=== PATIENT | female | born 1960 | race Caucasian/White ===

== ENCOUNTER → 2016-04-05 | Outpatient (CLI) | payer BC ==
--- NOTE | 2016-04-05 07:53 | US ---
EXAMINATION TYPE: US duplex aorta DATE OF EXAM: 04/05/2016 7:42 AM COMPARISON: NONE CLINICAL HISTORY: 55-year-old female Z82.49 Family HX AAA. TECHNIQUE: Multiple sonographic images of the abdominal aorta were obtained. FINDINGS: EXAM MEASUREMENTS: Abdominal Aorta: Proximal: 2.2 x 1.8 cm Mid: 1.6 x 1.8 cm Distal: 1.7 x 1.7 cm Common iliac arteries: right 1.0 x 1.1 cm; left 1.0 x 1.0 cm Very minimal atherosclerotic irregularity is noted. IMPRESSION: No sonographic evidence for any significant aortic ectasia or AAA.
--- NOTE | 2016-04-06 08:50 | MM ---
Reason for exam: screening (asymptomatic). Last mammogram was performed 1 year and 1 month ago. History: Patient is postmenopausal and has history of other cancer at age 27. Family history of breast cancer in maternal cousin. Physical Findings: A clinical breast exam by your physician is recommended on an annual basis and results should be correlated with mammographic findings. MG Screening Mammo w CAD Bilateral CC and MLO view(s) were taken. Prior study comparison: February 25, 2015, bilateral MG screening mammo w CAD. February 09, 2014, bilateral MG screening mammo w CAD. The breast tissue is heterogeneously dense. This may lower the sensitivity of mammography. No significant changes when compared with prior studies. ASSESSMENT: Benign, BI-RAD 2 RECOMMENDATION: Routine screening mammogram of both breasts in 1 year.
== END | disposition home or self-care (01) ==
LOC: RADUSWWP 07:26
PROVIDERS: ATTEND Family Medicine
DX: Z12.31 Encounter for screening mammogram for malignant neoplasm of breast (principal); Z82.49 Family history of ischemic heart disease and other diseases of the circulatory system
CPT/HCPCS: 93979; G0202

== ENCOUNTER → 2017-05-07 | Outpatient (CLI) | payer BC ==
--- NOTE | 2017-05-09 12:16 | MM ---
Reason for exam: screening (asymptomatic). Last mammogram was performed 1 year and 1 month ago. History: Patient is postmenopausal and has history of other cancer at age 27. Family history of breast cancer in maternal cousin. Physical Findings: A clinical breast exam by your physician is recommended on an annual basis and results should be correlated with mammographic findings. MG Screening Mammo w CAD Bilateral CC and MLO view(s) were taken. Prior study comparison: April 05, 2016, bilateral MG screening mammo w CAD. February 25, 2015, bilateral MG screening mammo w CAD. The breast tissue is heterogeneously dense. This may lower the sensitivity of mammography. No suspicious abnormality. No significant changes when compared with prior studies. ASSESSMENT: Negative, BI-RAD 1 RECOMMENDATION: Routine screening mammogram of both breasts in 1 year.
== END | disposition home or self-care (01) ==
LOC: RADMAMWWP 10:22
PROVIDERS: ATTEND Family Medicine
DX: Z12.31 Encounter for screening mammogram for malignant neoplasm of breast (principal)
CPT/HCPCS: 77067

== ENCOUNTER → 2018-04-03 | Outpatient (CLI) | payer BC ==
--- NOTE | 2018-04-04 08:18 | XR ---
EXAMINATION TYPE: XR Hip Complete RT DATE OF EXAM: 04/03/2018 CLINICAL HISTORY: pain TECHNIQUE: AP and frogleg views of the right hip are obtained. COMPARISON: None. FINDINGS: There is no acute fracture/dislocation evident. The joint space appears within normal li mits. The overlying soft tissue appears unremarkable. IMPRESSION: 1. There is no acute fracture or dislocation. ICD 10 NO FRACTURE, INITIAL EVALUATION
== END | disposition home or self-care (01) ==
LOC: RADXRMAIN 16:48
PROVIDERS: ATTEND Family Medicine
DX: M25.551 Pain in right hip (principal)
CPT/HCPCS: 73502

== ENCOUNTER → 2018-07-08 | Outpatient (CLI) | payer BC ==
--- NOTE | 2018-07-10 09:50 | MM ---
Reason for exam: screening (asymptomatic). Last mammogram was performed 1 year and 2 months ago. History: Patient is postmenopausal and has history of other cancer at age 27. Family history of breast cancer in maternal cousin. Physical Findings: A clinical breast exam by your physician is recommended on an annual basis and results should be correlated with mammographic findings. MG 3D Screening Mammo W/Cad Bilateral CC and MLO view(s) were taken. Prior study comparison: May 07, 2017, bilateral MG screening mammo w CAD. April 05, 2016, bilateral MG screening mammo w CAD. The breast tissue is heterogeneously dense. This may lower the sensitivity of mammography. There is no discrete abnormality. No significant changes when compared with prior studies. ASSESSMENT: Negative, BI-RAD 1 RECOMMENDATION: Routine screening mammogram of both breasts in 1 year.
== END ==
LOC: RADMAMWWP 10:17
PROVIDERS: ATTEND Family Medicine
DX: Z12.31 Encounter for screening mammogram for malignant neoplasm of breast (principal)
CPT/HCPCS: 77063; 77067

== ENCOUNTER → 2019-10-17 | Outpatient (CLI) | payer BC ==
--- NOTE | 2019-10-19 08:48 | MM ---
Reason for exam: screening (asymptomatic). Last mammogram was performed 1 year and 3 months ago. History: Patient is postmenopausal and has history of other cancer at age 27. Family history of breast cancer in maternal cousin. Physical Findings: A clinical breast exam by your physician is recommended on an annual basis and results should be correlated with mammographic findings. MG 3D Screening Mammo W/Cad Bilateral CC and MLO view(s) were taken. Prior study comparison: July 08, 2018, bilateral MG 3d screening mammo w/cad. May 07, 2017, bilateral MG screening mammo w CAD. The breast tissue is heterogeneously dense. This may lower the sensitivity of mammography. No significant changes when compared with prior studies. ASSESSMENT: Negative, BI-RAD 1 RECOMMENDATION: Routine screening mammogram of both breasts in 1 year.
== END | disposition home or self-care (01) ==
LOC: RADMAMWWP 15:59
PROVIDERS: ATTEND Family Medicine
DX: Z12.31 Encounter for screening mammogram for malignant neoplasm of breast (principal)
CPT/HCPCS: 77063; 77067

== ENCOUNTER → 2020-01-25 | Outpatient (CLI) | payer BC | END | disposition home or self-care (01) | LOC: LABWHC1 13:16 | PROVIDERS: ATTEND Emergency Medicine | DX: Z20.828 Contact with and (suspected) exposure to other viral communicable diseases (principal) | CPT/HCPCS: U0003; C9803 ==

== ENCOUNTER 2020-03-29 09:07 | Emergency (ER) | payer BC ==
[2020-03-29 09:22] VITALS: BP 130/79; PULSE 100; RESP 18; TEMP 98
[2020-03-29] MEDS ORDERED: DIPH,PERTUS(ACELL)TETVAC-LF 0.5 ML VIAL IM ONE (09:39)
--- NOTE | 2020-03-29 09:50 | ED ---
Upper Extremity HPI - General Chief Complaint: Extremity Injury, Upper Stated Complaint: silver in arm Time Seen by Provider: 03/29/20 09:35 Source: patient, RN notes reviewed Mode of arrival: ambulatory Limitations: no limitations - History of Present Illness Initial Comments: This a 59-year-old female presents emergency Department chief complaint of f oreign body her left arm. Patient states she broke a piece palate off in her arm she will use. Patient that she can feel and she states she is not up-to-date on her tetanus. Patient is no active bleeding no other complaints no paresthesias no weakness. - Related Data Home Medications Medication Instructions Recorded Confirmed Meclizine [Antivert] 1 tab PO QID PRN 06/08/14 06/08/14 Previous Rx's Medication Instructions Recorded Meclizine [Antivert] 25 mg PO TID #20 tab 06/08/14 diazePAM [Valium] 5 mg PO TID PRN #15 tab 06/08/14 Amoxicillin/Potassium Clav 1 tab PO Q12HR #20 tab 03/29/20 [Augmentin 875-125 Tablet] Allergies Allergy/AdvReac Type Severity Reaction Status Date / Time No Known Allergies Allergy Verified 03/29/20 09:19 Review of Systems ROS Statement: Those systems with pertinent positive or pertinent negative responses have been documented in the HPI. ROS Other: All systems not noted in ROS Statement are negative. Past Medical History Past Medical History: Hyperlipidemia History of Any Multi-Drug Resistant Organisms: None Reported Past Surgical History: Hysterectomy Additional Past Surgical History / Comment(s): VERTIGO Past Psychological History: No Psychological Hx Reported Smoking Status: Never smoker Past Alcohol Use History: None Reported Past Drug Use History: None Reported General Exam Limitations: no limitations General appearance: alert, in no apparent distress Head exam: Present: atraumatic, normocephalic, normal inspection Eye exam: Present: normal appearance, PERRL, EOMI. Absent: scleral icterus, conjunctival injection, periorbital swelling Respiratory exam: Present: normal lung sounds bilaterally. Absent: respiratory distress, wheezes, rales, rhonchi, stridor Cardiovascular Exam: Present: regular rate, normal rhythm, normal heart sounds. Absent: systolic murmur, diastolic murmur, rubs, gallop, clicks Extremities exam: Present: other (Left forearm there is a small puncture wound noted, proximal to the wound there is a palpable foreign body arm is n eurovascularly intact full range of motion) Course Vital Signs 03/29/20 09:20 Temperature 98 F Pulse Rate 100 Respiratory 18 Rate Blood Pressure 130/79 O2 Sat by Pulse 96 Oximetry Procedures - Forgein Body Removal Soft Tissue Consent Obtained: written consent Site: upper extremity (Left forearm) Anesthetic Used: lidocaine 2%, with epi Amount (mLs): 3 Foreign Body Suspected: Wood Foreign Body Removed: partial removal Foreign Body Removal Technique: Instrumentation Patient Tolerated Procedure: well, no complications Medical Decision Making - Medical Decision Making Patient had foreign body left arm there is a partial removal I cannot identify any other foreign body patient does not feel any sensation. Patient will follow-up with orthopedics was placed on antibiotics we did discuss possibility of foreign body and infection. Return parameters were discussed patient was updated on tetanus. Disposition Clinical Impression: Foreign body in left forearm Disposition: HOME SELF-CARE Condition: Stable Instructions (If sedation given, give patient instructions): Soft Tissue Foreign Body (ED) Additional Instructions: Please follow-up for recheck and return for any worsening changes symptoms.Please return to the Emergency Department if symptoms worsen or any other concerns. Prescriptions: Amoxicillin/Potassium Clav [Augmentin 875-125 Tablet] 1 tab PO Q12HR #20 tab Is patient prescribed a controlled substance at d/c from ED?: No Referrals: Terrence Velasquez DO [Primary Care Provider] - 1-2 days Barrett Winter MD [STAFF PHYSICIAN] - 1-2 days Time of Disposition: 10:48
[2020-03-29] MEDS ORDERED: LIDOCAINE 2%-EPI 1:100,000 20 ML VIAL SQ STA (10:12)
[2020-03-29] MEDS ORDERED: BACITRACIN OINT 1 EACH PACKET TOPICAL ONE (10:53)
--- NOTE | 2020-03-29 11:03 | XR ---
EXAMINATION TYPE: XR forearm LT DATE OF EXAM: 03/29/2020 COMPARISON: None HISTORY: Sliver distal ulnar side TECHNIQUE: 2 view left forearm FINDINGS: No radiopaque foreign bodies are identified. A suspicious radiolucency is not evident. No a cute osseous abnormality is evident. IMPRESSION: 1. No acute osseous abnormality. 2. Foreign body not identified on these images.
== END 2020-03-29 10:55 | disposition home or self-care (01) ==
LOC: EC 09:07
DX: S51.842A Puncture wound with foreign body of left forearm, initial encounter (principal); Z23 Encounter for immunization; Z90.710 Acquired absence of both cervix and uterus; W45.8XXA Other foreign body or object entering through skin, initial encounter; Y93.89 Activity, other specified; Y92.69 Other specified industrial and construction area as the place of occurrence of the external cause; Y99.0 Civilian activity done for income or pay
CPT/HCPCS: 10120; 90471; 90715; 99283

== ENCOUNTER → 2020-04-08 | Outpatient (CLI) | payer BC ==
[2020-04-08 10:38] LABS: Basophils # (A) 0.1 k/uL (0-0.2); Basophils % (A) 1 %; Eosinophils # (A) 0.2 k/uL (0-0.7); Eosinophils % (A) 3 %; HCT 41.2 % (34.0-46.0); HGB 13.9 gm/dL (11.4-16.0); Lymphocytes # (A) 2.1 k/uL (1.0-4.8); Lymphocytes % (A) 29 %; MCH 30.7 pg (25.0-35.0); MCHC 33.9 g/dL (31.0-37.0); MCV 90.6 fL (80.0-100.0); Mean Platelet Volume 6.7; Monocytes # (A) 0.3 k/uL (0-1.0); Monocytes % (A) 5 %; Neutrophils # (A) 4.3 k/uL (1.3-7.7); Neutrophils % (A) 60 %; Platelet Count 229 k/uL (150-450); RBC 4.55 m/uL (3.80-5.40); RDW 13.1 % (11.5-15.5); WBC 7.1 k/uL (3.8-10.6)
[2020-04-08 11:03] LABS: Potassium 5.1 mmol/L (3.5-5.1)
== END | disposition home or self-care (01) ==
LOC: LABPAT 09:20
PROVIDERS: ATTEND Orthopaedic Surgery
DX: S50.852A Superficial foreign body of left forearm, initial encounter (principal)
CPT/HCPCS: 36415; 80051; 85025

== ENCOUNTER 2020-04-17 13:47 | Day surgery (SDC) | payer BC, OTHER ==
[2020-04-16 08:37] VITALS: BMI 24.7
--- NOTE | 2020-04-16 16:58 | HP ---
HISTORY AND PHYSICAL DATE OF SURGERY: 04/17/2020 Martha Chen is a 59-year-old patient seen with a foreign body in the left forearm. I recommended extraction/excision of the foreign body. She was agreeable. Consent was obtained. PAST MEDICAL HISTORY: Noncontributory. PAST SURGICAL HISTORY: Noncontributory. DAILY MEDICATIONS: None. ALLERGIES: NONE KNOWN. SOCIAL HISTORY: She denies current tobacco use. PHYSICAL EVALUATION OF THE LEFT FOREARM: There is a palpable foreign body in the ulnar aspect of the distal forearm. There is a previous well-healed puncture wound with evidence that it is well healed. Distal neurovascular exam is intact. RADIOGRAPHS: Radiographs of the left forearm fail to reveal any osseous abnormality. IMPRESSION: Foreign body, left forearm. PLAN: Excision foreign body, left forearm. MMODL / IJN: [id number] /
[~2020-04-17 13:47] MED LIST: DEXAMETHASONE SOD PHOSPHATE 4 MG/ML 1 ML VIAL IV ONE; HYDROmorphone 0.5 MG/0.5 ML SYRINGE IVP PRN; LACTATED RINGERS 1,000 ML IV SCH; ONDANSETRON 4 MG/2 ML VIAL IVP ONE
[2020-04-17] MEDS ORDERED: LIDOCAINE 1% (10MG/ML) FOR IV START INTRADERMA ONE (15:14)
[2020-04-17] MEDS ORDERED: BUPIVACAINE (PF) 0.25% 30 ML VIAL SQ ONE (16:36)
[2020-04-17] MEDS ORDERED: fentaNYL (PF) 50 MCG/ML 2 ML AMP ONE (16:39)
[2020-04-17] MEDS ORDERED: LIDOCAINE 1% INJ 10MG/ML (20 ML MDV) ONE (16:39)
[2020-04-17] MEDS ORDERED: PROPOFOL 10 MG/ML 20 ML VIAL IV ONE (16:39)
[2020-04-17] MEDS ORDERED: MIDAZOLAM 2 MG/2 ML VIAL ONE (16:39)
[2020-04-17 17:25] VITALS: TEMP 98.7
--- NOTE | 2020-04-17 17:28 | P.OP ---
Date of Procedure: 04/17/20 Preoperative Diagnosis: Foreign body left forearm Postoperative Diagnosis: 3 cm x 2-3 mm foreign body left forearm Procedure(s) Performed: Excision foreign body left forearm Anesthesia: MEIR, local Surgeon: Michael Qiu Estimated Blood Loss (ml): 1 Pathology: none sent Condition: stable Disposition: PACU Indications for Procedure: 59-year-old patient seen with a symptomatic foreign body of the left forearm. I discussed surgical excision, she was agreeable. Consent was obtained. Operative Findings: See description of procedure Description of Procedure: The patient was taken to the operative suite. Patient underwent a general anesthetic by the department of anesthesia. She received preoperative IV antibiotics. Well-padded tourniquet placed proximal left upper extremity. Left upper extremity prepped and draped in the normal sterile orthopedic fashion. I palpated the foreign body. I made a 1 cm incision in the proximal area of the form body. I was able to extract performed by without difficulty. It appeared be a wood sliver measuring to 3 mm in diameter and 3 cm in length. I now palpated the area and did not feel any additional foreign bodies. I explored the incision and sewn no other form body. The incision was repaired with nylon suture. I injected 5 mL half percent plain Marcaine for postoperative pain management. Sterile dressings were applied. Tourniquet was released. Patient was awakened and then transferred to a bed and recovery stable condition.
[2020-04-17] MEDS ORDERED: HYDROmorphone 0.5 MG/0.5 ML SYRINGE IVP ONE (17:35)
[2020-04-17 18:15] VITALS: RESP 16
[2020-04-17 18:46] VITALS: BP 125/81; PULSE 69
== END 2020-04-17 18:56 | disposition home or self-care (01) ==
LOC: OR 13:47
PROVIDERS: ATTEND Orthopaedic Surgery
DX: S50.852A Superficial foreign body of left forearm, initial encounter (principal); X58.XXXA Exposure to other specified factors, initial encounter; E78.5 Hyperlipidemia, unspecified; Z79.899 Other long term (current) drug therapy; Z90.710 Acquired absence of both cervix and uterus; Z85.41 Personal history of malignant neoplasm of cervix uteri
CPT/HCPCS: 10120; J2250; J1100; J2405; J0690; J2001; J3010; J2704; J1170

== ENCOUNTER → 2020-11-19 | Outpatient (CLI) | payer BC ==
--- NOTE | 2020-11-19 11:32 | BD ---
EXAMINATION TYPE: Axial Bone Density DATE OF EXAM: 11/19/2020 COMPARISON: NONE CLINICAL HISTORY: Height: 5 FT 1 IN Weight: 135 FRAX RISK QUESTIONS: Alcohol (3 or more units per day): NO Family History (Parent hip fracture): YES Glucocorticoids (More than 3mos): NO (Ex: prednisone, prednisolone, methylprednisolone, dexamethasone, and hydrocortisone). History of Fracture in Adulthood: NO Secondary Osteoporosis: 1. Type 1 Diabetes: NO 2. Hyperthyroidism: NO 3. Menopause before 45: NO 4. Malnutrition: NO 5. Chronic liver disease: NO Rheumatoid Arthritis: NO Current Tobacco Use: NO RISK FACTORS HISTORY OF: Surgery to Spine/Hip(right/left)/Wrist (right/left): NO Family History of Osteoporosis: UNSURE Active: YES Diet low in dairy products/other sources of calcium: NO Postmenopausal woman: PART HYST AGE 27 SYMPTOMS AROUND AGE 49 Take estrogen and/or progesterone medications: NONE Lost more than 2 inches in height since high school: NO MEDICATIONS: Additional Medications: CRESTOR , ASPIRIN Additional History: EXAM MEASUREMENTS: Bone mineral densitometry was performed using the [employer] System. Bone mineral density as measured about the Lumbar spine is: ----- L1-L4(G/cm2): 1.020 T Score Values are as follows: ----- L2: -2.3 ----- L3: -0.6 ----- L4: -1.3 ----- L1-L4: -1.3 BASELINE Bone mineral density about the R hip (g/cm2): 0.659 Bone mineral density about the L hip (g/cm2): 0.669 T Score values are as follows: -----R Neck: -2.7 -----L Neck: -2.7 -----R Total: -1.3 -----L Total: -1.4 BASELINE IMPRESSION: Osteoporosis (T Score less than -2.5). There is increased fracture risk and therapy is usually indicated based on age. Re-Screen 1-2 years. NOTE: T-SCORE=SD OF THE YOUNG ADULT MEAN.
--- NOTE | 2020-11-19 14:17 | MM ---
Reason for exam: screening (asymptomatic). Last mammogram was performed 1 year and 1 month ago. History: Patient is postmenopausal and has history of other cancer at age 27. Family history of breast cancer in maternal cousin. Physical Findings: A clinical breast exam by your physician is recommended on an annual basis and results should be correlated with mammographic findings. MG Screening Mammo w CAD Bilateral CC and MLO view(s) were taken. Prior study comparison: October 17, 2019, bilateral MG 3d screening mammo w/cad. July 08, 2018, bilateral MG 3d screening mammo w/cad. May 07, 2017, bilateral MG screening mammo w CAD. The breast tissue is heterogeneously dense. This may lower the sensitivity of mammography. There is no discrete abnormality. ASSESSMENT: Negative, BI-RAD 1 RECOMMENDATION: Routine screening mammogram of both breasts in 1 year.
== END | disposition home or self-care (01) ==
LOC: RADBDWWP 09:13
PROVIDERS: ATTEND Family Medicine
DX: Z12.31 Encounter for screening mammogram for malignant neoplasm of breast (principal); Z78.0 Asymptomatic menopausal state; Z80.3 Family history of malignant neoplasm of breast; M81.0 Age-related osteoporosis without current pathological fracture
CPT/HCPCS: 77067; 77080

== ENCOUNTER → 2021-08-28 | Outpatient (CLI) | payer BC ==
--- NOTE | 2021-08-28 12:02 | US ---
EXAMINATION TYPE: US venous doppler duplex LE LT DATE OF EXAM: 08/28/2021 11:44 AM COMPARISON: NONE CLINICAL HISTORY: [id number] PAIN IN LEFT KNEE. Pain in left knee x 1 week after knee surgery SIDE PERFORMED: Left TECHNIQUE: The lower extremity deep venous system is examined utilizing real time linear array sonog ellis with graded compression, doppler sonography and color-flow sonography. VESSELS IMAGED: Common Femoral Vein Deep Femoral Vein Greater Saphenous Vein * Femoral Vein Popliteal Vein Small Saphenous Vein * Proximal Calf Veins (* superficial vessels) Left Leg: Negative for DVT IMPRESSION: No evidence for DVT at this time.
== END | disposition home or self-care (01) ==
LOC: LABWHC1 11:09
PROVIDERS: ATTEND Orthopaedic Surgery
DX: M25.561 Pain in right knee (principal)

== ENCOUNTER → 2022-01-13 | Outpatient (CLI) | payer BC ==
--- NOTE | 2022-01-14 08:50 | MM ---
Reason for Exam: Screening (asymptomatic). Last mammogram was performed 1 year(s) and 2 month(s) ago. Patient History: Menarche at age 12. First Full-Term at age 16. Hysterectomy at age 27. Postmenopausal. Maternal cousin had breast cancer under age 50. Maternal cousin had breast cancer, age 40. Risk Values: Ondina 5 year model risk: 1.1%. NCI Lifetime model risk: 5.0%. Prior Study Comparison: 07/08/2018 Bilateral Screening Mammogram, [facility]. 10/17/2019 Bilateral Screening Mammogram, [facility]. 11/19/2020 Bilateral Screening Mammogram, [facility]. Tissue Density: The breast tissue is heterogeneously dense. This may lower the sensitivity of mammography. Findings: Analyzed By CAD. There is no suspicious group of microcalcifications or new suspicious mass in either breast. No significant change from prior exams. Overall Assessment: Negative, BI-RAD 1 Management: Screening Mammogram of both breasts in 1 year. A clinical breast exam by your physician is recommended on an annual basis and results should be correlated with mammographic findings. Electronically signed and approved by: Alvaro Mcintosh D.O.
== END | disposition home or self-care (01) ==
LOC: RADMAMWWP 07:35
PROVIDERS: ATTEND Family Medicine
DX: Z12.31 Encounter for screening mammogram for malignant neoplasm of breast (principal); Z78.0 Asymptomatic menopausal state; Z80.3 Family history of malignant neoplasm of breast
CPT/HCPCS: 77063; 77067

== ENCOUNTER → 2022-12-16 | Outpatient (CLI) | payer BC ==
[2022-12-17 00:41] LABS: Anion Gap 11.3 mmol/L (4.00-12.00); Carbon Dioxide 25.7 mmol/L (21.6-31.8); Potassium 4.7 mmol/L (3.5-5.5)
== END | disposition home or self-care (01) ==
LOC: LABWHC1 12:11
PROVIDERS: ATTEND Family Medicine
DX: E87.5 Hyperkalemia (principal)
CPT/HCPCS: 36415; 80051

== ENCOUNTER → 2023-01-14 | Outpatient (CLI) | payer BC ==
--- NOTE | 2023-01-14 08:12 | BD ---
EXAMINATION TYPE: Axial Bone Density DATE OF EXAM: 01/14/2023 CLINICAL HISTORY: 62 years old Female. ICD-10 CODE: M81.0 OSTEOPOROSIS Height: Weight: FRAX RISK QUESTIONS: Family History (Parent hip fracture): yes RISK FACTORS HISTORY OF: Family History of Osteoporosis: yes Postmenopausal woman: 49 yrs old Lost more than 2 inches in height since high school: yes Hyperparathyroidism: no Adrenal Insufficiency: no MEDICATIONS: Osteoporosis Medications: fosamax, for about 2 yrs Additional Medications: aspirin, statin for cholesterol, fosamax, vid d, calcium, hx of cervical ca, 1988, Additional History: cholesterol, osteoporosis, hx of cancer, EXAM MEASUREMENTS: Bone mineral densitometry was performed using the [employer] System. Bone mineral density as measured about the Lumbar spine is: ----- L1-L4(G/cm2): 1.069 T Score Values are as follows: ----- L1: -1.5 ----- L2: -1.1 ----- L3: -0.4 ----- L4: -1.0 ----- L1-L4: -0.9 Z Score Values are as follows: ----- L1: 0.1 ----- L2: 0.5 ----- L3: 1.2 ----- L4: 0.7 ----- L1-L4: 0.7 Bone mineral density has: Increased 4.8% since 11.19.2020 Bone mineral density about the R hip (g/cm2): 0.887 Bone mineral density about the L hip (g/cm2): 0.893 T Score values are as follows: -----R Neck: -2.6 -----L Neck: -2.3 -----R Total: -1.0 -----L Total: -0.9 Z Score values are as follows: -----R Neck: -1.1 -----L Neck: -0.8 -----R Total: 0.3 -----L Total: 0.3 Bone mineral density has: Increased 5.8% since study of: 11.19.2020 FRAX%s: The graph provided illustrates a 24.1% chance for a major osteoporotic fx and a 3.1% chance f or the hips probability for fx in 10 years time. IMPRESSION: Osteopenia (T Score between -2.5 and -1). There is slightly increased risk of fracture and the patient may be considered for treatment. Re-Screen 2-5 years. NOTE: T-SCORE=SD OF THE YOUNG ADULT MEAN.
--- NOTE | 2023-01-14 08:31 | MM ---
Reason for Exam: Screening (asymptomatic). Last screening mammogram was performed 12 month(s) ago. Patient History: Menarche at age 12. First Full-Term at age 16. Hysterectomy at age 27. Postmenopausal. Maternal cousin had breast cancer under age 50. Maternal cousin had breast cancer, age 40. Risk Values: Ondina 5 year model risk: 1.1%. NCI Lifetime model risk: 4.9%. Prior Study Comparison: 10/17/2019 Bilateral Screening Mammogram, [facility]. 11/19/2020 Bilateral Screening Mammogram, [facility]. 01/13/2022 Bilateral MG 3D screening mammo w/cad, [facility]. Tissue Density: The breast tissue is heterogeneously dense. This may lower the sensitivity of mammography. Findings: Analyzed By CAD. There is no suspicious group of microcalcifications or new suspicious mass in either breast. Overall Assessment: Negative, BI-RAD 1 Management: Screening Mammogram of both breasts in 1 year. A clinical breast exam by your physician is recommended on an annual basis and results should be correlated with mammographic findings. Note on Ondina scores and lifetime risk: 1. A Ondina score greater than 3% is considered moderate risk. If this is the case, consider specialist referral to assess eligibility for a risk reducing agent. If overall lifetime risk for the development of breast cancer is 20% or higher, the patient may qualify for future screening with alternating mammogram and breast MRI. Electronically signed and approved by: Alvaro Mcintosh D.O.
== END | disposition home or self-care (01) ==
LOC: RADMAMWWP 06:52
PROVIDERS: ATTEND Family Medicine
DX: Z12.31 Encounter for screening mammogram for malignant neoplasm of breast (principal); M81.0 Age-related osteoporosis without current pathological fracture; M85.89 Other specified disorders of bone density and structure, multiple sites; R07.9 Chest pain, unspecified; R06.02 Shortness of breath; Z80.3 Family history of malignant neoplasm of breast; Z78.0 Asymptomatic menopausal state; Z82.49 Family history of ischemic heart disease and other diseases of the circulatory system
CPT/HCPCS: 77063; 77067; 77080

== ENCOUNTER → 2023-12-23 | Outpatient (CLI) | payer BC ==
--- NOTE | 2023-12-23 23:41 | MR ---
EXAMINATION TYPE: MR iac wo/w con DATE OF EXAM: 12/23/2023 COMPARISON: 06/28/2014r HISTORY: off balance, light headed, vertigo, headaches. CONTRAST: Performed utilizing 6.5 mL intravenous Gadavist gadolinium contrast. TECHNIQUE: Multiplanar, multiecho imaging on a 3.0 Mariam magnet is performed through the brain. Atte ntion is paid to the internal auditory canals with thin section imaging. Postcontrast imaging is per formed through the internal auditory canals. FINDINGS:Craniovertebral junction is normal. The pituitary is normal. Optic chiasm as visualized ap pears normal. Normal vascular flow voids are within the visualized intracranial cerebral vasculature. Diffusion-weighted imaging is performed. No suspicious hyperintensity is present to suggest an acute intracranial infarct or acute ischemic area. Signal within the brain has a couple of deep white matter areas of hyperintensity which are non-speci fic but could be related to microvascular ischemic changes.. Thin section imaging is performed through the internal auditory canals and cerebellar pontine angles. No cerebellar pontine angle masses are evident. The internal auditory canals appear normal without expansion or erosion. Postcontrast imaging was performed. No suspicious enhancement is evident within the internal audito ry canals or the included portions of the brain. IMPRESSION: 1. No suspicious changes within the internal auditory canals or cerebellar pontine angles to account for patient's symptoms. 2. Scattered deep white matter changes which are nonspecific but can be related to microvascular isch emic change. [facility], Workstation: [facility], 12/23/2023 11:39 PM
== END | disposition home or self-care (01) ==
LOC: RADMRIMAIN 20:45
PROVIDERS: ATTEND Family Medicine
DX: R42 Dizziness and giddiness
CPT/HCPCS: 70553

== ENCOUNTER → 2024-01-23 | Outpatient (CLI) | payer BC ==
--- NOTE | 2024-01-24 13:10 | MM ---
Reason for Exam: Screening (asymptomatic). Last screening mammogram was performed 12 month(s) ago. Patient History: Menarche at age 12. First Full-Term at age 16. Hysterectomy at age 27. Postmenopausal. Maternal cousin had breast cancer under age 50. Maternal cousin had breast cancer, age 40. Risk Values: Ondina 5 year model risk: 1.2%. NCI Lifetime model risk: 4.7%. Prior Study Comparison: 11/19/2020 Bilateral Screening Mammogram, [facility]. 01/13/2022 Bilateral MG 3D screening mammo w/cad, [facility]. 01/14/2023 Bilateral MG 3D screening mammo w/cad, [facility]. Tissue Density: The breasts are heterogeneously dense, which may obscure small masses. Findings: Analyzed By CAD. Right breast: There is no suspicious group of microcalcifications or new suspicious mass. Left breast: There is no suspicious group of microcalcifications or new suspicious mass. Overall Assessment: Negative, BI-RAD 1 Management: Screening Mammogram of both breasts in [address] [facility] will attempt to contact patient to return for supplemental views and ultrasound if indicated. Patient should continue monthly self-breast exams. A clinical breast exam by your physician is recommended on an annual basis. This exam should not preclude additional follow-up of suspicious palpable abnormalities. Note on Ondina scores and lifetime risk: 1. A Ondina score greater than 3% is considered moderate risk. If this is the case, consider specialist referral to assess eligibility for a risk reducing agent. 2. If overall lifetime risk for the development of breast cancer is 20% or higher, the patient may qualify for future screening with alternating mammogram and breast MRI. [facility], , 01/24/2024 1:07 PM. Electronically signed and approved by: Jay Loera DO
== END | disposition home or self-care (01) ==
LOC: RADMAMWWP 16:28
PROVIDERS: ATTEND Family Medicine
DX: Z12.31 Encounter for screening mammogram for malignant neoplasm of breast (principal); R92.333 Mammographic heterogeneous density, bilateral breasts; Z78.0 Asymptomatic menopausal state; Z80.3 Family history of malignant neoplasm of breast
CPT/HCPCS: 77063; 77067